=== PATIENT | male | born 1930 | race African-American/Black ===

== ENCOUNTER → 2020-04-04 | Outpatient (CLI) | payer MEDICARE, OTHER ==
[~2020-04-04] MED LIST: ADULT LOW DOSE81 MG PO; ALLEGRA ALLERGY60 MG PO; CALCITRIOL0.5 MCG PO; CALCIUM 500+D1 EAC3 PO; CLARITIN10 MG PO; COLACE100 MG PO; COUMADIN 5 MG TA5 M1 PO; DILTIAZEM 24HR240 MG PO; DILTIAZEM ER120 M1 PO; ENDOCET 10-3251 EACH PO; FISH OIL 1,0001 EAC5 PO; GLYCOLAX POWDER17 G1 PO; HEMORRHOIDAL S1 EAC2 RC; HYDROCHLOROTHIA25 M1 PO; JANUVIA100 MG PO; KLOR-CON 1010 MEQ PO; LANTUS SQ; LEVITRA20 MG PO; LEVOXYL125 MCG PO; LIPITOR40 MG PO; LOSARTAN POTAS100 MG PO; METFORMIN HCL500 M3 PO; MULTIVITAMINS PO; NEURONTIN100 MG PO; NOVOLOG100 UNIT/1 SQ; OXYCODON-ACETA1 EAC1 PO; OXYCODONE-ACET1 EACH PO; PLAVIX 75 MG TA75 MG PO; PROTONIX40 M2 PO; SLOW FE142 MG PO; TAMSULOSIN HCL0.4 MG PO; TOPROL XL25 MG PO; TRIAM60 TP; TROSPIUM CHLORI20 MG PO; VITAMIN C500 M2 PO; VITAMIN D3250 MC2 PO; [UNRECOGNIZED DRUG - OTHER] TP
== END ==
LOC: M.PC 09:06
PROVIDERS: ATTEND Physical Medicine & Rehabilitation
DX: M25.78 Osteophyte, vertebrae (principal); M54.5 Low back pain; Z98.1 Arthrodesis status

== ENCOUNTER → 2020-04-05 | Outpatient (CLI) | payer MEDICARE, OTHER | LOC: M.MRI 14:28 | PROVIDERS: ATTEND Physical Medicine & Rehabilitation | DX: M47.816 Spondylosis without myelopathy or radiculopathy, lumbar region (principal); M51.36 Other intervertebral disc degeneration, lumbar region; M48.061 Spinal stenosis, lumbar region without neurogenic claudication ==